=== PATIENT | female | born 1995 | race Caucasian/White ===

== ENCOUNTER → 2016-10-01 | Outpatient (CLI) | payer OTHER ==
[~2016-10-01] MED LIST: MULTCAP11 PO; PERCOCET PO; no historical meds
--- NOTE | 2016-10-02 05:39 | REP ---
CLINICAL: Cervicalgia. TECHNIQUE: AP, lateral, open mouth views. FINDINGS: Alignment and lordosis maintained. Vertebral bodies intact. Disc spaces are relatively normal. Prevertebral soft tissues unremarkable. Spinous processes intact. Open mouth view demonstrates normal C1-C2 articulation and odontoid process. IMPRESSION: Normal three view cervical spine series. Unreviewed
== END ==
LOC: M ADAMS 15:25
PROVIDERS: ATTEND Physician Assistant
DX: M54.2 Cervicalgia (principal)

== ENCOUNTER → 2017-04-26 | Outpatient (REF) | payer OTHER | LOC: M LAB REF 14:30 | PROVIDERS: ATTEND Nurse Practitioner Family | DX: Z11.3 Encounter for screening for infections with a predominantly sexual mode of transmission (principal) ==

== ENCOUNTER → 2017-04-26 | Outpatient (REF) | payer OTHER | LOC: M SFHCWAGY 15:47 | PROVIDERS: ATTEND Nurse Practitioner Family | DX: Z12.4 Encounter for screening for malignant neoplasm of cervix (principal) ==

== ENCOUNTER → 2017-06-04 | Outpatient (CLI) | payer OTHER ==
--- NOTE | 2017-06-04 15:09 | REP ---
Right knee series: Five views. History: Generalized knee pain. Findings: Five views of the right knee demonstrate nonarticular spurring at the superior pole of the patella at the quadriceps tendon insertion site. This may reflect chronic patellar tendonitis. There is a bone island in the proximal tibia. Bones, joints and soft tissues are otherwise unremarkable. Impression: Quadriceps tendon insertion site spurring on the superior pole of the patella consistent with chronic tendonitis. No acute abnormality. Signed by Jonh Munoz MD 06/04/2017 05:03 P
== END ==
LOC: M WUC 13:33
PROVIDERS: ATTEND Physician Assistant Medical
DX: M25.561 Pain in right knee (principal)

== ENCOUNTER → 2018-09-10 | Outpatient (REF) | payer OTHER ==
[2018-09-10 21:31] LABS: CHLAMYDIA DNA AMPLIFICATION NEGATIVE (NEGATIVE); GC DNA AMPLIFICATION NEGATIVE (NEGATIVE)
== END ==
LOC: M LAB REF 17:26
PROVIDERS: ATTEND Family Medicine
DX: Z11.3 Encounter for screening for infections with a predominantly sexual mode of transmission (principal)

== ENCOUNTER → 2018-09-10 | Outpatient (CLI) | payer OTHER ==
[2018-09-10 13:46] LABS: FREE T4 1.05 NG/DL (0.76-1.46); THYROID STIMULATING HORMONE 2.08 uIU/ML (0.358-3.740)
[2018-09-10 13:57] LABS: HEMOGLOBIN A1c 5.1 %
== END ==
LOC: M SMT 10:06
PROVIDERS: ATTEND Family Medicine
DX: E55.9 Vitamin D deficiency, unspecified (principal); Z13.29 Encounter for screening for other suspected endocrine disorder

== ENCOUNTER → 2019-05-17 | Outpatient (CLI) | payer OTHER ==
[~2019-05-17] MED LIST changes: +OXYC1TAB23 PO; -PERCOCET PO
--- NOTE | 2019-05-17 17:10 | REP ---
Lumbar spine five views: There are no comparisons. Vertebral body heights, interspacing alignment are normal. There is no spondylolysis or spondylolisthesis. The pedicles and facets are unremarkable. The sacroiliac articulations are unremarkable. Impression: Negative plain film study of the lumbar spine. Electronically Signed by Patrick Roldan MD 05/17/2019 05:02 P
== END ==
LOC: M ADAMS 16:38
PROVIDERS: ATTEND Physician Assistant Medical
DX: M54.5 Low back pain (principal)

== ENCOUNTER → 2019-09-18 | Outpatient (CLI) | payer OTHER ==
[2019-09-18 17:29] LABS: FREE T4 1.11 NG/DL (0.76-1.46); THYROID STIMULATING HORMONE 1.77 uIU/ML (0.358-3.740)
[2019-09-19 13:39] LABS: TOTAL 25(OH) VITAMIN D 26.2 NG/ML (30.0-100.0)
== END ==
LOC: M WUC 14:11
PROVIDERS: ATTEND Family Medicine
DX: E55.9 Vitamin D deficiency, unspecified (principal); Z13.29 Encounter for screening for other suspected endocrine disorder

== ENCOUNTER → 2020-01-21 | Outpatient (CLI) | payer OTHER | LOC: M LABSMTC 13:28 | PROVIDERS: ATTEND Pediatrics | DX: Z03.818 Encounter for observation for suspected exposure to other biological agents ruled out (principal); Z11.59 Encounter for screening for other viral diseases ==

== ENCOUNTER → 2020-08-31 | Outpatient (REF) | payer OTHER | LOC: M LAB REF 14:36 | PROVIDERS: ATTEND Dermatology | DX: D22.4 Melanocytic nevi of scalp and neck (principal) ==

== ENCOUNTER → 2022-01-24 | Outpatient (CLI) | payer BC | LOC: M RAD 07:28 → MERGE 07:30 | PROVIDERS: ATTEND Physician Assistant | DX: M54.42 Lumbago with sciatica, left side (principal) ==

== ENCOUNTER → 2022-03-09 | Outpatient (REF) | payer BC | LOC: M SFHCDERM 17:28 | PROVIDERS: ATTEND Nurse Practitioner Family | DX: L82.1 Other seborrheic keratosis (principal) ==

== ENCOUNTER → 2022-03-31 | Outpatient (CLI) | payer BC | LOC: M PAIN 13:30 | PROVIDERS: ATTEND Nurse Practitioner Family | DX: M51.16 Intervertebral disc disorders with radiculopathy, lumbar region (principal); Z79.899 Other long term (current) drug therapy; Z91.048 Other nonmedicinal substance allergy status ==

== ENCOUNTER → 2022-08-21 | Outpatient (CLI) | payer BC | LOC: M LABSMTC 10:06 | PROVIDERS: ATTEND Anesthesiology | DX: Z01.812 Encounter for preprocedural laboratory examination (principal); Z20.822 Contact with and (suspected) exposure to COVID-19 ==

== ENCOUNTER → 2022-08-24 | Outpatient (CLI) | payer BC ==
[~2022-08-24] MED LIST changes: +ISOVUE-M 300 61% 15ML VIAL As Ordered ONE; +LIDOCAINE 1% SDV 30ML VIAL As Ordered ONE; +NORCO, ANEXSIA 5/325MG TABLET (HYDROcodone/ACETAMINOPHEN) As Ordered ONE; +diazePAM 5MG TABLET As Ordered ONE; +methylPREDNISolone SUSP 40MG/ML 1ML VIAL (DEPO MEDROL) As Ordered ONE
== END ==
LOC: M PAIN 08:15
PROVIDERS: ATTEND Anesthesiology
DX: M51.16 Intervertebral disc disorders with radiculopathy, lumbar region (principal); Z79.899 Other long term (current) drug therapy; Z91.048 Other nonmedicinal substance allergy status

== ENCOUNTER → 2022-09-28 | Outpatient (CLI) | payer BC ==
[~2022-09-28] MED LIST changes: -ISOVUE-M 300 61% 15ML VIAL As Ordered ONE; -LIDOCAINE 1% SDV 30ML VIAL As Ordered ONE; -NORCO, ANEXSIA 5/325MG TABLET (HYDROcodone/ACETAMINOPHEN) As Ordered ONE; -diazePAM 5MG TABLET As Ordered ONE; -methylPREDNISolone SUSP 40MG/ML 1ML VIAL (DEPO MEDROL) As Ordered ONE
== END ==
LOC: M PAIN 15:45
PROVIDERS: ATTEND Anesthesiology
DX: G89.29 Other chronic pain (principal); M51.16 Intervertebral disc disorders with radiculopathy, lumbar region; Z79.899 Other long term (current) drug therapy; Z91.048 Other nonmedicinal substance allergy status

== ENCOUNTER → 2024-04-30 | Outpatient (CLI) | payer BC ==
[2024-04-30 19:38] LABS: FREE T4 1.26 NG/DL (0.89-1.76); PROLACTIN 9.2 NG/ML
[2024-04-30 19:40] LABS: THYROID STIMULATING HORMONE 1.814 uIU/ML (0.55-4.78)
[2024-05-06 03:42] LABS: TESTOSTERONE FREE (DIRECT) 2.1 pg/mL (0.1-6.4)
== END ==
LOC: M PLALAB 15:53
PROVIDERS: ATTEND Obstetrics & Gynecology
DX: Z01.419 Encounter for gynecological examination (general) (routine) without abnormal findings (principal); Z12.4 Encounter for screening for malignant neoplasm of cervix

== ENCOUNTER → 2025-05-29 | Outpatient (CLI) | payer BC | LOC: M WUC 11:13 | PROVIDERS: ATTEND Nurse Practitioner Family | DX: M25.561 Pain in right knee (principal) ==